=== PATIENT | female | born 1960 | race Caucasian/White ===

== ENCOUNTER 2022-12-28 15:11 | Inpatient (IN) | payer OTHER ==
[~2022-12-28] VITALS: Ht 154.9 cm; Wt 60.3 kg
[2022-12-28] MEDS ORDERED: ACETAMINOPHEN 325MG TABLET PO STA (16:14)
[2022-12-28] MEDS ORDERED: ONDANSETRON HCL 4MG/2ML INJ IV STA (16:14)
[2022-12-28] MEDS ORDERED: MORPHINE SULFATE 4 MG/ML CPJ (NOT FOR IM USE) IV STA (16:14)
[2022-12-28] MEDS ORDERED: CEFTRIAXONE 1 G PREMIX 50 ML IV ONE (16:15)
[2022-12-28] MEDS ORDERED: SODIUM CHLORIDE 0.9% 1000ML BAG (SEPSIS BOLUS) IV ONE (16:15)
[2022-12-28] MEDS ORDERED: AZITHROMYCIN 500MG/250ML 250 ML IV ONE (16:15)
[2022-12-28 16:39] LABS: HEMATOCRIT. 44.2 % (36.0-48.0); HEMOGLOBIN. 15.2 g/dL (12.0-16.0); MEAN CORPUSCULAR HEMOGLOBIN 32.3 pg (28.0-32.0); MEAN CORPUSCULAR VOLUME 93.7 fL (81.0-99.0); MEAN PLATELET VOLUME 11.5 fl (7.4-10.4); PLATELET 192 x1000/uL (130-400); RED BLOOD CELL COUNT 4.72 mill/uL (4.2-5.4); RED CELL DISTRIBUTION WIDTH 12.6 % (11.6-14.6)
[2022-12-28 16:45] LABS: CLARITY URINE CLEAR (CLEAR); COLOR URINE YELLOW (YELLOW); KETONES URINE NEGATIVE (NEGATIVE); LEUKOCYTE ESTERASE URINE NEGATIVE (NEGATIVE); NITRITE URINE NEGATIVE (NEGATIVE); OCCULT BLOOD URINE NEGATIVE (NEGATIVE); PROTEIN URINE NEGATIVE (NEGATIVE); SPECIFIC GRAVITY URINE 1.006 (1.005-1.030); UROBILINOGEN URINE 0.2 E.U./dL (0.2-1.0)
[2022-12-28 16:49] LABS: CHLORIDE 103 mEq/L (98-107)
[2022-12-28 17:00] LABS: PROTHROMBIN TIME 10.6 sec (9.6-11.0)
[2022-12-28 17:49] LABS: PLATELET ESTIMATE NORMAL
[2022-12-28] MEDS ORDERED: IOHEXOL-300 100 ML BOTTLE ONE (19:41)
[2022-12-28] MEDS ORDERED: ACETAMINOPHEN 325MG TABLET PO ONE (20:00)
[2022-12-29 01:19] VITALS: BP 133/76
[2022-12-29 01:26] VITALS: BP 133/76
[2022-12-29 04:00] VITALS: BP 113/67
[2022-12-29] MEDS ORDERED: MORPHINE SULFATE 2 MG/ML CPJ (NOT FOR IM USE) IV PRN (05:00)
[2022-12-29] MEDS ORDERED: ACETAMINOPHEN 325MG TABLET PO PRN (05:00)
[2022-12-29] MEDS ORDERED: OMEP40CA20 PO (05:02)
[2022-12-29] MEDS ORDERED: ATOR20TA65 PO (05:02)
[2022-12-29] MEDS ORDERED: NALOXONE HCL 0.4MG/ML VIAL IV PRN (05:30)
[2022-12-29] MEDS: DEXT 5%/0.45% NACL 1000ML 1,000 ML IV SCH ×2 (05:54→17:54)
[2022-12-29] MEDS: METRONIDAZOLE 500 MG PREMIX 100 ML IV SCH ×3 (05:54→17:54)
[2022-12-29] MEDS ORDERED: LEVOFLOXACIN 500MG PREMIX 100 ML IV SCH (09:00)
[2022-12-29] MEDS ORDERED: PANTOPRAZOLE SODIUM 40 MG/VIAL IV SCH (09:00)
[2022-12-29 12:00] VITALS: BP 138/73
[2022-12-29 12:05] LABS: HEPATITIS B SURFACE ANTIGEN NEGATIVE
[2022-12-29] MEDS ORDERED: LEVO-65 MT (12:35)
[2022-12-29] MEDS ORDERED: DOCU-138 MT (12:35)
[2022-12-29] MEDS ORDERED: FAMO-135 MT (12:35)
[2022-12-29] MEDS ORDERED: METR-167 MT (12:35)
[2022-12-29] MEDS ORDERED: MAGNESIUM/ALUMINUM HYDROXIDE/SIMETHICONE 30ML UDC PO SCH (12:45)
[2022-12-29] MEDS ORDERED: LACTULOSE 20G/30ML UDC PO SCH (13:00)
[2022-12-29] MEDS ORDERED: VISCOUS LIDOCAINE 2% 15 ML UDC PO SCH (13:00)
[2022-12-29 15:51] VITALS: BP 133/77
[2022-12-29 16:00] VITALS: BP 112/68
[2022-12-29 17:17] LABS: BASOPHILS % 0.3 % (0.0-2.0); EOSINOPHILS % 0.3 % (0.0-5.0); HEMATOCRIT. 38.4 % (36.0-48.0); HEMOGLOBIN. 12.9 g/dL (12.0-16.0); LYMPHOCYTES % 15.9 % (20.0-50.0); MEAN CORPUSCULAR VOLUME 95.1 fL (81.0-99.0); NEUTROPHILS % 72.5 % (40.0-76.0); PLATELET 161 x1000/uL (130-400); RED BLOOD CELL COUNT 4.04 mill/uL (4.2-5.4); RED CELL DISTRIBUTION WIDTH 12.7 % (11.6-14.6)
[2022-12-29 17:35] LABS: CHLORIDE 108 mEq/L (98-107)
[2022-12-29] MEDS ORDERED: ATORVASTATIN CALCIUM 20MG TABLET PO SCH (21:00)
== END 2022-12-29 19:23 | disposition home or self-care (01) | DRG 392 ==
LOC: ER 15:11 → EDBEDREQ 20:10 → SUPCPDRO 20:57 → EDBEDREQSVC 21:20 → MICUSO 21:21 → EDBEDREQ 21:50 → 7EST 12-29 01:07
PROVIDERS: ADMIT Internal Medicine; ATTEND Internal Medicine
DX: A08.4 Viral intestinal infection, unspecified (principal); K29.70 Gastritis, unspecified, without bleeding; I10 Essential (primary) hypertension; K59.00 Constipation, unspecified; E78.00 Pure hypercholesterolemia, unspecified
CPT/HCPCS: 36415; 71045; 74177; 80053; 81003; 83605; 84145; 85025; 86803; 87340; 93005; 99291; C9113; J0456; J0696; J1956; J2270; J2405; J3490; J7030; Q9967

== ENCOUNTER 2025-02-15 08:49 | Emergency (ER) | payer MEDICAID, OTHER ==
[~2025-02-15] VITALS: Ht 154.9 cm; Wt 61.6 kg
[~2025-02-15 08:49] MED LIST: ATOR20TA65 PO; DOCU-138 MT; FAMO-135 MT; LEVO-65 MT; METR-167 MT; OMEP40CA20 PO
[2025-02-15 09:01] VITALS: O2SAT 98
[2025-02-15 09:36] LABS: BASOPHILS % 0.5 % (0.0-2.0); EOSINOPHILS % 2.7 % (0.0-5.0); HEMATOCRIT. 41.6 % (36.0-48.0); LYMPHOCYTES % 27.8 % (20.0-50.0); MEAN CORPUSCULAR HGB CONC 33.8 g/dL (31.0-37.0); MEAN CORPUSCULAR VOLUME 94.7 fL (81.0-99.0); MEAN PLATELET VOLUME 10.6 fl (7.4-10.4); MONOCYTES % 7.3 % (2.0-8.0); NEUTROPHILS % 61.7 % (40.0-76.0); PLATELET 192 x1000/uL (130-400); RED BLOOD CELL COUNT 4.39 mill/uL (4.2-5.4); RED CELL DISTRIBUTION WIDTH 12.9 % (11.6-14.6); WHITE BLOOD COUNT 4.7 x1000/uL (4.5-11.0)
[2025-02-15 10:08] LABS: CHLORIDE 105 mEq/L (98-107); POTASSIUM 4.4 mEq/L (3.5-5.1); SODIUM 139 mEq/L (136-145)
[2025-02-15 10:09] LABS: CALCIUM 10.4 mg/dL (8.7-10.4); CARBON DIOXIDE 27 mEq/L (21-32)
[2025-02-15 10:14] LABS: CREATININE 0.7 mg/dL (0.6-1.0); GLUCOSE 110 mg/dL (70-105); UREA NITROGEN BLOOD 11 mg/dL (9-23)
[2025-02-15 10:16] LABS: ALANINE AMINOTRANSFERASE 15 IU/L (10-49); ALBUMIN 4.5 g/dL (3.2-4.8); ASPARTATE AMINOTRANSFERASE 20 IU/L (<34); BILIRUBIN DIRECT 0.2 mg/dL (<=3.0)
[2025-02-15 10:17] LABS: PROTEIN TOTAL 7.9 g/dL (6.0-8.3)
[2025-02-15] MEDS: MORPHINE SULFATE 4 MG/ML INJ (FOR IV/IM USE) IV ONE (10:30)
[2025-02-15] MEDS: ONDANSETRON HCL 4MG/2ML INJ IV ONE (10:30)
[2025-02-15 12:55] LABS: CLARITY URINE CLEAR (CLEAR); COLOR URINE YELLOW (YELLOW); GLUCOSE URINE NEGATIVE (NEGATIVE); KETONES URINE 1+ (NEGATIVE); LEUKOCYTE ESTERASE URINE NEGATIVE (NEGATIVE); NITRITE URINE NEGATIVE (NEGATIVE); OCCULT BLOOD URINE NEGATIVE (NEGATIVE); PH URINE 6.5 (4.5-8.0); PROTEIN URINE NEGATIVE (NEGATIVE); SPECIFIC GRAVITY URINE 1.008 (1.005-1.030); UROBILINOGEN URINE 0.2 E.U./dL (0.2-1.0)
[2025-02-15 13:20] LABS: UCG SCREEN NEGATIVE
[2025-02-15] MEDS ORDERED: LIDO700A15 TP (13:27)
[2025-02-15] MEDS ORDERED: IBUP-2028 MT (13:27)
[2025-02-15] MEDS ORDERED: METH-653 MT (13:27)
[2025-02-15] MEDS ORDERED: LACT1CAP78 MT (13:27)
[2025-02-15] MEDS ORDERED: POLY119P2 MT (13:27)
[2025-02-15] MEDS: KETOROLAC 30MG/ML VIAL IV ONE (13:46)
[2025-02-15 13:50] VITALS: BP 105/63; PULSE 53; RESP 11; TEMP 36.9; O2SAT 98
== END 2025-02-15 14:00 | disposition home or self-care (01) ==
LOC: ER 08:54
DX: K58.9 Irritable bowel syndrome, unspecified (principal); M43.16 Spondylolisthesis, lumbar region; E78.00 Pure hypercholesterolemia, unspecified; Z88.8 Allergy status to other drugs, medicaments and biological substances; Z79.899 Other long term (current) drug therapy; Z98.890 Other specified postprocedural states
CPT/HCPCS: 80076; 80048; 81003; 81025; 83690; 85025; 86850; 86900; 86901; 36415; 74176; 93005; 96374; 96375; 99285; J1885; J2405; J2270; Z7610 ×3

== ENCOUNTER 2025-04-21 07:54 | Emergency (ER) | payer MEDICAID ==
[~2025-04-21] VITALS: Ht 165.1 cm; Wt 70.0 kg
[~2025-04-21 07:54] MED LIST changes: +IBUP-2028 MT; +LACT1CAP78 MT; +LIDO-53 TP; +METH-653 MT; +POLY119P2 MT
[2025-04-21 08:08] VITALS: TEMP 37.2; O2SAT 99
[2025-04-21 08:47] LABS: BASOPHILS % 0.6 % (0.0-2.0); EOSINOPHILS % 1.6 % (0.0-5.0); HEMATOCRIT. 40.8 % (36.0-48.0); LYMPHOCYTES % 26.5 % (20.0-50.0); MEAN CORPUSCULAR HEMOGLOBIN 32.7 pg (28.0-32.0); MEAN CORPUSCULAR HGB CONC 34.4 g/dL (31.0-37.0); MEAN CORPUSCULAR VOLUME 95.3 fL (81.0-99.0); MEAN PLATELET VOLUME 10.6 fl (7.4-10.4); MONOCYTES % 6.6 % (2.0-8.0); NEUTROPHILS % 64.7 % (40.0-76.0); PLATELET 198 x1000/uL (130-400); RED BLOOD CELL COUNT 4.29 mill/uL (4.2-5.4); RED CELL DISTRIBUTION WIDTH 12.8 % (11.6-14.6); WHITE BLOOD COUNT 4.6 x1000/uL (4.5-11.0)
[2025-04-21 09:04] LABS: CHLORIDE 105 mEq/L (98-107); POTASSIUM 3.8 mEq/L (3.5-5.1); SODIUM 142 mEq/L (136-145)
[2025-04-21 09:05] LABS: CARBON DIOXIDE 28 mEq/L (21-32)
[2025-04-21 09:10] LABS: CREATININE 0.7 mg/dL (0.6-1.0); UREA NITROGEN BLOOD 9 mg/dL (9-23)
[2025-04-21 09:11] LABS: TROPONIN I HIGH SENSITIVITY 11 ng/L (3.0-34)
[2025-04-21 09:24] LABS: GLUCOSE 122 mg/dL (70-105)
[2025-04-21] MEDS ORDERED: DICY-18 MT (09:30)
[2025-04-21 09:49] VITALS: BP 140/70; PULSE 60; RESP 12; O2SAT 97
== END 2025-04-21 09:50 | disposition home or self-care (01) ==
LOC: ER 08:48
DX: R10.84 Generalized abdominal pain (principal); I10 Essential (primary) hypertension; E78.00 Pure hypercholesterolemia, unspecified; Z79.899 Other long term (current) drug therapy
CPT/HCPCS: 36415; 71045; 80048; 84484; 85025; 93005; 99285